=== PATIENT | male | born 1960 | race African-American/Black ===

== ENCOUNTER 2017-12-22 01:53 | Emergency (ER) | payer MEDICAID ==
[~2017-12-22] VITALS: Ht 180.3 cm; Wt 79.0 kg
[2017-12-22] MEDS ORDERED: METHYLPREDNISOLONE SOD SUCC 125 MG/2 ML VIAL IV STA (02:38)
[2017-12-22] MEDS ORDERED: IPRATROPIUM BROMIDE (0.02%) 0.5MG/2.5ML NEB HHN STA (02:38)
[2017-12-22] MEDS ORDERED: MAGNESIUM 2 G PREMIX 50 ML IV STA (02:38)
[2017-12-22] MEDS ORDERED: ALBUTEROL (0.083%) 2.5MG/3ML NEB HHN STA (02:38)
[2017-12-22 05:15] VITALS: BP 159/95
== END 2017-12-22 05:16 | disposition home or self-care (01) ==
LOC: ER 02:42
DX: J44.1 Chronic obstructive pulmonary disease with (acute) exacerbation (principal); J06.9 Acute upper respiratory infection, unspecified; F17.210 Nicotine dependence, cigarettes, uncomplicated; I11.9 Hypertensive heart disease without heart failure; G40.909 Epilepsy, unspecified, not intractable, without status epilepticus; F43.10 Post-traumatic stress disorder, unspecified; Z86.59 Personal history of other mental and behavioral disorders
CPT/HCPCS: 71045; 93005; 94640; 96365; 96366; 96375; 99285; J2930; J3475; J7611; Z7610

== ENCOUNTER 2017-12-22 23:56 | Emergency (ER) | payer MEDICAID ==
[~2017-12-22] VITALS: Ht 180.3 cm; Wt 79.0 kg
[2017-12-23] MEDS ORDERED: VISCOUS LIDOCAINE 2% 15 ML UDC MM STA (00:29)
[2017-12-23] MEDS ORDERED: MAGNESIUM/ALUMINUM HYDROXIDE/SIMETHICONE 30ML UDC PO ONE (00:30)
[2017-12-23] MEDS ORDERED: ONDANSETRON HCL 4MG/2ML VIAL IV ONE (00:30)
[2017-12-23 01:01] LABS: BASOPHILS % 0.6 % (0.0-2.0); EOSINOPHILS % 0.3 % (0.0-5.0); HEMATOCRIT. 40.8 % (42.0-52.0); HEMOGLOBIN. 14.2 g/dL (14.0-18.0); LYMPHOCYTES % 10.8 % (20.0-50.0); MEAN CORPUSCULAR HEMOGLOBIN 31.8 pg (28.0-32.0); MEAN CORPUSCULAR VOLUME 91.7 fL (80.0-94.0); MEAN PLATELET VOLUME 9.3 fl (7.4-10.4); MONOCYTES % 9.3 % (2.0-8.0); PLATELET 202 x1000/uL (130-400); RED BLOOD CELL COUNT 4.45 mill/uL (4.7-6.1); RED CELL DISTRIBUTION WIDTH 15.9 % (11.6-14.6)
[2017-12-23 01:05] LABS: CHLORIDE 94 mEq/L (98-107)
[2017-12-23] MEDS ORDERED: SODIUM CHLORIDE 0.9% 1,000 ML IV ONE (01:15)
[2017-12-23 06:16] LABS: CLARITY URINE CLEAR (CLEAR); COLOR URINE YELLOW (YELLOW); KETONES URINE 1+ (NEGATIVE); LEUKOCYTE ESTERASE URINE NEGATIVE (NEGATIVE); NITRITE URINE NEGATIVE (NEGATIVE); OCCULT BLOOD URINE NEGATIVE (NEGATIVE); PROTEIN URINE NEGATIVE (NEGATIVE); SPECIFIC GRAVITY URINE 1.012 (1.005-1.030)
[2017-12-23 07:13] LABS: *AMPHETAMINES SCREEN URINE NEGATIVE (NEGATIVE); *BARBITURATES SCREEN URINE NEGATIVE (NEGATIVE)
[2017-12-23 07:14] LABS: *BENZODIAZEPINES SCREEN URINE NEGATIVE (NEGATIVE); *COCAINE SCREEN URINE NEGATIVE (NEGATIVE); CANNABINOID URINE SCREEN NEGATIVE (NEGATIVE); METHADONE URINE SCREEN NEGATIVE (NEGATIVE); OPIATES URINE SCREEN NEGATIVE (NEGATIVE)
[2017-12-23 07:15] LABS: PHENCYCLIDINE URINE SCREEN NEGATIVE (NEGATIVE)
[2017-12-23] MEDS ORDERED: LEVETIRACETAM 500MG TABLET PO ONE (09:45)
[2017-12-23] MEDS ORDERED: CARBAMAZEPINE 200MG TABLET PO ONE (09:45)
[2017-12-23 14:50] VITALS: BP 159/96
== END 2017-12-23 14:59 | disposition home or self-care (01) ==
LOC: ER 23:56
DX: K29.20 Alcoholic gastritis without bleeding (principal); I10 Essential (primary) hypertension; R51 Headache; Z87.891 Personal history of nicotine dependence; Z79.899 Other long term (current) drug therapy
CPT/HCPCS: 36415; 80053; 80305; 81003; 83690; 85025; 85610; 96361; 96374; 99284; J2405; J7030; Z7610